=== PATIENT | male | born 1950 | race Caucasian/White ===

== ENCOUNTER 2020-02-16 18:34 | Emergency (ER) | payer MEDICARE ==
[~2020-02-16] VITALS: Ht 175.3 cm; Wt 76.7 kg
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
[2020-02-16] MEDS ORDERED: LIDOCAINE 1%-EPI 1:100,000 20 ML VIAL ONE (19:23)
[2020-02-16] MEDS: LIDOCAINE 1%-EPI 1:100,000 20 ML VIAL TP ONE (19:44)
--- NOTE | 2020-02-16 20:25 | NUR ---
Patient discharged to home in stable condition under the care of room mate and girlfriend. Written and verbal after care instructions given. Patient, room mate and pt's girlfriend verbalizes understanding of instruction. Pt wheeled out of er on wheelchair
[2020-02-16 20:27] VITALS: BP 159/94
== END 2020-02-16 20:28 | disposition home or self-care (01) ==
LOC: ER 18:36
DX: S01.01XA Laceration without foreign body of scalp, initial encounter (principal); S09.8XXA Other specified injuries of head, initial encounter; R41.82 Altered mental status, unspecified; W01.198A Fall on same level from slipping, tripping and stumbling with subsequent striking against other object, initial encounter; Y93.89 Activity, other specified; Y92.091 Bathroom in other non-institutional residence as the place of occurrence of the external cause; Y99.8 Other external cause status
CPT/HCPCS: 12004; 70450; 99284; A6403; J3490

== ENCOUNTER 2020-02-18 08:27 | Emergency (ER) | payer MEDICARE ==
[~2020-02-18] VITALS: Ht 175.3 cm; Wt 72.6 kg
[2020-02-18 08:33] VITALS: BP 131/78
== END 2020-02-18 09:10 | disposition home or self-care (01) ==
LOC: ER 08:34
DX: S01.01XD Laceration without foreign body of scalp, subsequent encounter (principal); X58.XXXD Exposure to other specified factors, subsequent encounter
CPT/HCPCS: 99281; A6403

== ENCOUNTER 2020-02-25 12:47 | Emergency (ER) | payer MEDICARE ==
[~2020-02-25] VITALS: Ht 175.3 cm; Wt 74.8 kg
[2020-02-25 12:52] VITALS: BP 136/71
--- NOTE | 2020-02-25 13:35 | NUR ---
STAPLE REMOVED BY .
--- NOTE | 2020-02-25 13:42 | NUR ---
Patient discharged to home in stable condition. Written and verbal after care instructions given. Patient verbalizes understanding of instruction.
== END 2020-02-25 13:44 | disposition home or self-care (01) ==
LOC: ER 12:49
DX: S01.01XD Laceration without foreign body of scalp, subsequent encounter (principal); X58.XXXD Exposure to other specified factors, subsequent encounter